=== PATIENT | male | born 1995 | race Hispanic/Latino ===

== ENCOUNTER → 2020-03-15 | Outpatient (REF) | payer SELFPAY | LOC: M LAB REF 12:30 | PROVIDERS: ATTEND Physician Assistant | DX: N50.811 Right testicular pain (principal) ==

== ENCOUNTER → 2020-03-19 | Outpatient (CLI) | payer SELFPAY ==
--- NOTE | 2020-03-19 13:23 | REP ---
INDICATION: RIGHT TESTICULAR PAIN COMPARISON: None. TECHNIQUE: Flor scale and color Doppler evaluation using linear and curved array transducer with color Doppler evaluation. FINDINGS: The testicles are normal in contour, size, echogenicity, and vascularity without testicular pathology appreciated. Small bilateral hydroceles identified and nonspecific/likely insignificant. No varicoceles are identified. Right epididymal head cyst measures 8 mm maximal diameter. Left epididymal head cyst measures 16 mm diameter. Right testicle measures 4.1 x 2.1 x 3.1 cm. Left testicle measures 4.4 x 2.2 x 2.5 cm. IMPRESSION: 1. Normal appearance to the bilateral testicles. 2. Moderate to large bilateral epididymal cysts possibly related to patient's symptoms. <Electronically signed by Marek Hargrove > 03/19/20 [id number]
== END ==
LOC: M RAD 12:28 → EDUNIT# 13:00
PROVIDERS: ATTEND Physician Assistant
DX: N50.811 Right testicular pain (principal)